=== PATIENT | male | born 1940 | race Two or more races ===

== ENCOUNTER 2022-11-26 07:52 | Inpatient (IN) | payer BC, MEDICARE ==
[~2022-11-26] VITALS: Ht 182.9 cm; Wt 89.5 kg
[2022-11-26] VITALS (12 sets, daily range): BP systolic 141–166; BP diastolic 55–87
[2022-11-26] MEDS ORDERED: ASPIRIN 81MG TABLET PO ONE (08:15)
[2022-11-26 08:28] LABS: BASOPHILS % 0.5 % (0.0-2.0); EOSINOPHILS % 7.4 % (0.0-5.0); HEMATOCRIT. 35.8 % (42.0-52.0); HEMOGLOBIN. 12.4 g/dL (14.0-18.0); LYMPHOCYTES % 12.4 % (20.0-50.0); MEAN CORPUSCULAR HEMOGLOBIN 34.1 pg (28.0-32.0); MEAN CORPUSCULAR VOLUME 98.4 fL (80.0-94.0); MONOCYTES % 11.2 % (2.0-8.0); NEUTROPHILS % 68.5 % (40.0-76.0); PLATELET 195 x1000/uL (130-400); RED BLOOD CELL COUNT 3.64 mill/uL (4.7-6.1); RED CELL DISTRIBUTION WIDTH 13.2 % (11.6-14.6)
[2022-11-26 09:52] LABS: CHLORIDE 107 mEq/L (98-107)
[2022-11-26] MEDS ORDERED: HEPARIN 1000 UNITS/ML 10ML ONE (10:22)
[2022-11-26] MEDS ORDERED: LIDOCAINE HCL/PF 2% 20MG/ML 5 ML/VIAL ONE (10:22)
[2022-11-26] MEDS ORDERED: IOHEXOL-300 100 ML BOTTLE ONE (10:22)
[2022-11-26] MEDS: SODIUM CHLORIDE 0.9% 1,000 ML IV SCH ×2 (10:29→16:45)
[2022-11-26] MEDS ORDERED: IODIXANOL 320MG/ML 100 ML BOTTLE IV ONE (13:19)
[2022-11-26] MEDS ORDERED: FENTANYL CITRATE/PF 50MCG/ML 2ML VIAL ONE (13:54)
[2022-11-26] MEDS ORDERED: MIDAZOLAM HCL 2 MG/2 ML VIAL ONE (13:54)
[2022-11-26] MEDS ORDERED: MORPHINE SULFATE 2 MG/ML CPJ (NOT FOR IM USE) IV PRN (15:00)
[2022-11-26] MEDS ORDERED: ONDANSETRON HCL 4MG/2ML INJ IV PRN (15:00)
[2022-11-26] MEDS ORDERED: ACETAMINOPHEN 325MG TABLET PO PRN (15:00)
[2022-11-26] MEDS ORDERED: SODIUM CHLORIDE 0.45% 1,000 ML IV ONE (15:00)
[2022-11-26] MEDS ORDERED: ATROPINE SULFATE 1MG/10ML SYR IV PRN (15:00)
[2022-11-26] MEDS ORDERED: NICARDIPINE 100MCG/ML 10ML VIAL (CATH LAB) IV ONE (15:01)
[2022-11-26] MEDS ORDERED: NITROGLYCERIN 50MCG/ML 10ML VIAL (CATH LAB) IV ONE (15:01)
[2022-11-26 16:20] LABS: T4 FREE 1.21 ng/dL (0.76-1.46)
[2022-11-26] MEDS: METOPROLOL TARTRATE 25MG TABLET PO SCH (21:09)
[2022-11-27] VITALS: BP 114/41
[2022-11-27] MEDS: SODIUM CHLORIDE 0.9% 1,000 ML IV SCH (00:54)
[2022-11-27 04:00] VITALS: BP 120/50
[2022-11-27 06:50] LABS: BASOPHILS % 0.3 % (0.0-2.0); EOSINOPHILS % 6.5 % (0.0-5.0); HEMATOCRIT. 33.6 % (42.0-52.0); HEMOGLOBIN. 11.6 g/dL (14.0-18.0); LYMPHOCYTES % 13.1 % (20.0-50.0); MEAN CORPUSCULAR HEMOGLOBIN 33.8 pg (28.0-32.0); MEAN CORPUSCULAR VOLUME 97.7 fL (80.0-94.0); MEAN PLATELET VOLUME 8.4 fl (7.4-10.4); MONOCYTES % 13.8 % (2.0-8.0); NEUTROPHILS % 66.3 % (40.0-76.0); PLATELET 184 x1000/uL (130-400); RED BLOOD CELL COUNT 3.44 mill/uL (4.7-6.1); RED CELL DISTRIBUTION WIDTH 13.4 % (11.6-14.6)
[2022-11-27] MEDS ORDERED: LEVOTHYROXINE SODIUM 125MCG TABLET PO SCH (06:50)
[2022-11-27 07:55] VITALS: BP 136/75
[2022-11-27] MEDS: METOPROLOL TARTRATE 25MG TABLET PO SCH (08:09)
[2022-11-27] MEDS ORDERED: ASPIRIN 81MG TABLET PO SCH (09:00)
[2022-11-27 09:05] LABS: CHLORIDE 110 mEq/L (98-107)
[2022-11-27 09:42] LABS: HDL CHOLESTEROL 49 mg/dL (40-59); LDL CHOLESTEROL 62 mg/dL (5-100)
[2022-11-27 09:55] VITALS: BP 154/71
[2022-11-27 10:36] VITALS: BP 154/71
== END 2022-11-27 11:11 | disposition home or self-care (01) | DRG 287 ==
LOC: ER 07:52 → 3WST 12:26
PROVIDERS: ADMIT Specialist; ATTEND Specialist
PROC: 4A023N7 Measurement of Cardiac Sampling and Pressure, Left Heart, Percutaneous Approach (ICD-10-PCS; principal; 2022-11-26)
PROC: B2111ZZ Fluoroscopy of Multiple Coronary Arteries using Low Osmolar Contrast (ICD-10-PCS; 2022-11-26)
DX: I25.10 Atherosclerotic heart disease of native coronary artery without angina pectoris (principal); E78.5 Hyperlipidemia, unspecified; E78.00 Pure hypercholesterolemia, unspecified; E03.9 Hypothyroidism, unspecified; I10 Essential (primary) hypertension; Z85.46 Personal history of malignant neoplasm of prostate; Z88.0 Allergy status to penicillin; Z79.82 Long term (current) use of aspirin; Z79.899 Other long term (current) drug therapy; Z92.3 Personal history of irradiation; Z95.5 Presence of coronary angioplasty implant and graft
CPT/HCPCS: 36415; 71045; 80048; 80053; 80061; 84439; 84443; 84481; 84484; 85025; 93005; 93458; 99285; C1769; C1887; C1893; J1644; J2250; J3010; J3490; Q9967